=== PATIENT | female | born 1960 | race Caucasian/White ===

== ENCOUNTER → 2022-04-26 14:10 | Outpatient (CLI) | payer SELFPAY ==
--- NOTE | ~2022-04-26 | MR_ITS ---
EXAMINATION: MR cervical spine wo con DATE: 04/26/2022 15:11 INDICATION: Right arm and neck pain x1.5 years. No injury. TECHNIQUE: Magnetic resonance imaging (MRI) of the cervical spine was performed without intravenous c ontrast. Sequences included sagittal T2-weighted FSE, sagittal T2-weighted FS FSE, sagittal T1-weight ed FSE, axial MERGE, and axial T2-weighted FSE. COMPARISON: None FINDINGS: Craniocervical association and atlantoaxial joint are intact, with mild degenerative change . Reversed lordosis, centered at C4-5. Vertebral body heights are maintained. Multilevel disc dehydra tion. The cord signal is normal. Congenital narrowing of the canal. Normal cervicomedullary junction. The following disc levels are specifically discussed: C2-C3: Mild diffuse bulge. There is mild uncovertebral joint osteoarthritis. There is no facet joint osteoarthritis. There is no neural foraminal stenosis. There is no central canal stenosis. C3-C4: Mild diffuse bulge. There is mild bilateral uncovertebral joint osteoarthritis. There is mild bilateral facet joint osteoarthritis. There is no right and mild left neural foraminal stenosis. Ther e is no central canal stenosis. C4-C5: Mild diffuse bulge. There is moderate bilateral uncovertebral joint osteoarthritis. There is m ild bilateral facet joint osteoarthritis. There is moderate right and mild left neural foraminal sten osis. There is mild central canal stenosis. C5-C6: Moderate diffuse bulge. There is moderate bilateral uncovertebral joint osteoarthritis. There is moderate bilateral facet joint osteoarthritis. There is severe right and moderate left neural fora rizwana stenosis. There is moderate central canal stenosis. C6-C7: Mild diffuse bulge. There is mild right and moderate left uncovertebral joint osteoarthritis. There is mild bilateral facet joint osteoarthritis. There is mild right and moderate left neural fora rizwana stenosis. There is no central canal stenosis. C7-T1: Mild diffuse bulge There is mild bilateral uncovertebral joint osteoarthritis. There is mild b ilateral facet joint osteoarthritis. There is no right and mild left neural foraminal stenosis. There is no central canal stenosis. IMPRESSION: 1. Moderate central canal stenosis at C5-6, caused by combination of degenerative disc, uncovertebral joint, and facet change, overlying a congenital narrowed appearing canal. 2. Severe right and moderate left neural foraminal narrowing at the C5-6 level. 3. Lesser degrees of degenerative disc change, uncovertebral joint osteoarthritis, central canal and neural foraminal narrowing are described in detail above. Reviewed, dictated and finalized at location K. IMPRESSION: 1. Moderate central canal stenosis at C5-6, caused by combination of degenerati ve disc, uncovertebral joint, and facet change, overlying a congenital narrowed appearing canal. 2. Severe right and moderate left neural foraminal narrowing at the C5-6 level. 3. Lesser degrees of degenerative disc change, uncovertebral joint osteoarthrit is, central canal and neural foraminal narrowing are described in detail above.
== END ==
PROVIDERS: PCP Internal Medicine; Visit Provider Neurological Surgery
DX: M50.322 Other cervical disc degeneration at C5-C6 level (principal); M48.02 Spinal stenosis, cervical region; M85.88 Other specified disorders of bone density and structure, other site
CPT/HCPCS: 99199; 72141

== ENCOUNTER 2022-06-02 12:32 | Outpatient (CLI) | payer OTHER, SELFPAY ==
--- NOTE | ~2022-06-02 | CT_ITS ---
EXAMINATION: CT cervical spine wo con DATE: 06/02/2022 13:01 INDICATION: Cervical spondylosis TECHNIQUE: Computed tomography (CT) of the cervical spine was performed without intravenous contrast. Automated exposure control and iterative reconstruction technique were employed. The dose-length pro duct was 105.92 mGy-cm. COMPARISON: Cervical spine MR dated 04/26/2022 FINDINGS: Moderate osteoarthritis at the atlantoaxial articulation. Straightening of the normal cervical lordos is. 1-2 mm retrolisthesis C5 on C6. Vertebral body heights are normal. No fracture. Mild disc height loss at C5-C6 with disc bulge resulting in mild central canal stenosis. There is also associated mild left and moderate right uncovertebral osteoarthritis resulting in mild bilateral neural foraminal st enosis at this level. Severe facet osteoarthritis on the right at T2-T3 and bilaterally at C7-T1 and T1-T2 and on the left at T2-T3. Minimal to mild facet osteoarthritis in the more cephalad cervical sp ine. Small amount of atherosclerotic calcific a cyst at the bilateral carotid bulbs. Mild emphysema t he apices of the lungs. IMPRESSION: 1. Mild cervical spondylosis. No acute osseous abnormalities. Reviewed, dictated and finalized at location A.
--- NOTE | 2022-06-02 13:23 | ECG_ITS ---
Measurements Intervals [place] Rate: 84 P: 79 MT: 129 QRS: 65 QRSD: 93 T: 64 QT: 339 QTc: 401 Interpretive Statements SINUS RHYTHM POSSIBLE LEFT ATRIAL ENLARGEMENT BORDERLINE ST ABNORMALITY- ANTEROLAT/INF LEADS BORDERLINE ECG NO PREVIOUS ECG AVAILABLE FOR COMPARISON Electronically Signed On 06-02-2022 14:39:04 CDT by Fransisco Elise D.O.
[2022-06-02 13:37] LABS: Basophils Percent Auto 0.6 % (0.2-1.2); Eosinophils Absolute Auto 0.1 K/mm3 (0-0.3); Eosinophils Percent Auto 2.1 % (0-4.4); Hematocrit 42.1 % (37.0-47.0); Immature Granulocyte Absolute 0.02 K/mm3 (0.00-0.031); Immature Granulocyte Percent A 0.3 % (0-0.5); Lymphocytes Absolute Auto 1.94 K/mm3 (0.9-3.2); Lymphocytes Percent Auto 29.3 % (18.3-44.2); Mean Corpuscular HGB Conc 33.3 g/dl (32-36); Mean Corpuscular Volume 99.3 fl (80-100); Mean Platelet Volume 9.1 fl (7.4-10.4); Monocytes Absolute Auto 0.5 K/mm3 (0.1-0.6); Monocytes Percent Auto 7.4 % (2.6-8.5); Neutrophils Percent Auto 60.3 % (45.5-73.1); Platelet Count Result 306 k/mm3 (150-375); Red Blood Count 4.24 M/mm3 (4.2-5.4); Red Cell Distribution Width 12.7 % (11.5-14.5); White Blood Count 6.6 K/mm3 (4.5-10.0)
[2022-06-02 13:41] LABS: Appearance Urine Clear (Clear); Bilirubin Urine Negative (Negative); Blood Urine Trace-lysed (Negative); Color Urine Yellow (Yellow); Glucose Urine UA Negative (Negative); Ketones Urine Negative (Negative); Leukocyte Esterase Ur Negative LEU/UL (Negative); Nitrate Urine Negative (Negative); Protein Urine Negative (Negative); Urobilinogen Urine 0.2 mg/dL (<2.0); pH Urine 6.5 (5.0-9.0)
[2022-06-02 13:43] LABS: Add Urine Microscopic? YES
[2022-06-02 13:48] LABS: Anion Gap 12 mmol/L (8-16); Blood Urea Nitrogen 9 mg/dL (7-17); Calcium 9.4 mg/dL (8.4-10.2); Carbon Dioxide 28 mmol/L (22-30); Chloride 98 mmol/L (98-107); Estimated Glomerular Filt Rate > 60; Glucose 144 mg/dL (65-110); INR 0.9; Potassium 3.7 mmol/L (3.4-5.0); Sodium 138 mmol/L (137-145)
[2022-06-02 13:49] LABS: Mucus Urine Rare /lpf; Squamous Epithelial Cell Urine Rare /hpf (Few); WBC Urine 0-3 /hpf
== END 2022-06-02 12:33 | disposition home or self-care (01) ==
PROVIDERS: PCP Internal Medicine; Visit Provider Neurological Surgery
DX: Z01.818 Encounter for other preprocedural examination (principal); M47.812 Spondylosis without myelopathy or radiculopathy, cervical region
CPT/HCPCS: 36415; 72125; 80048; 81001; 85025; 85610; 85730; 86850; 86900; 86901; 93005

== ENCOUNTER 2022-06-08 01:06 | Day surgery (SDC) | payer OTHER, SELFPAY ==
[2022-06-01 15:40] VITALS: BMI 19.5
--- NOTE | 2022-06-01 16:08 | PC.NURSE ---
Report to the Outpatient Waiting Room, entrance under the green pavilion located off [facility], at time 6:00 on date 06/08/22. OR Time: 7:30. - You and your visitor will be asked to self-screen and do not enter if you have any COVID symptoms. - Only one visitor and NO children visitors are allowed at this time. WILL BE ALLOWED 2 VISITORS AT A TIME ONCE IN ROOM AFTER SURGERY - The patient visitor is requested to leave or wait in car when not with patient due to restrictions. - A mask is required within the hospital. Patients may have clear liquids (water, carbonated beverages, clear teas, apple juice) until 3 hours prior to surgery (4:30) with a maximum of 20 ounces. - No food from midnight until time of surgery Take the following medications with a SIP of water the morning of surgery: CYCLOBENZAPRINE (IF NEEDED) Medications to discontinue per physician: N/A Date to take last dose: N/A Please no make-up, nail romansh, hairspray, perfume, deodorant, or body powder the day of surgery. No jewelry (including any body piercings) or valuables the day of surgery, leave them at home. Please take a shower or bath the night before, or the morning of, surgery with an antibacterial soap. Wear comfortable, loose fitting clothing. - Jewelry must be removed prior to entering the operating room. Rings and piercings that are not removed may be cut off. - The hospital will not accept responsibility for valuables. - Please leave all valuables, including medications, at home the day of surgery. If you are going home after surgery, a licensed skip load driver must drive you home. - NO public transportation without another adult. - We recommend that an adult stay with you for 24 hours following discharge. - We also recommend that you do not drive, make important decision, drink alcoholic beverages, or take any drugs that were not prescribed by your health care provider for at least 24 hours after your discharge time. Follow any additional instructions given to you from your surgeon. If you or anyone in your household have experienced Covid symptoms in the past week, please notify your surgeon or the nurse liaison at the phone number below for possible testing. Telephone instructions given to PT - EMERSON ORTIZ and asked if any additional questions and then verbalized understanding. Patient advised to call surgeon office or pre surgery nurse liaison [phone] if any additional questions.
[2022-06-08] VITALS (15 sets, daily range): BP systolic 115–136; BP diastolic 62–90; PULSE 84–111; RESP 12–22; TEMP 36.5–37.1; O2SAT 93–100
--- NOTE | ~2022-06-08 | XR_ITS ---
EXAMINATION: XR fluoroscopy no charge DATE: 06/08/2022 10:26 INDICATION: C5-C6 total disc replacement TECHNIQUE: 4 fluoroscopic images of the spine were obtained during procedure performed by Dr. Taylor. Radiologist was not present for the imaging or procedure. The amount of fluoroscopy time used during this procedure was 1.1 minutes. COMPARISON: CT dated 06/02/2022 FINDINGS: Initial images demonstrate an endotracheal tube extending into the proximal trachea and beyond the in ferior margin of the [id number]. There is also a likely temperature probe extending to the nasopha rynx into the hypopharynx. There is mild disc height loss at C5-C6 with a few millimeter of retrolist hesis of C5 on C6. Subsequent images demonstrate C5-C6 discectomy and placement of a prosthetic disc in expected position. IMPRESSION: 1. Fluoroscopy utilized during C5-C6 total disc replacement. See procedure note for further detail. Reviewed, dictated and finalized at location A.
[2022-06-08] MEDS: LACTATED RINGERS 1,000 ML 30 ML IV CONT ×2 (06:40→10:40)
--- NOTE | 2022-06-08 06:55 | P.PNAN_ITS ---
Anes - Initial Pre Proc Eval Procedure: Operation Date: 06/08/22 07:30 Proposed Procedures p Total Disc Replacement C5-6 - Dena Taylor MD Date/Time: 06/08/22 06:55 Surgeon: Dena Taylor MD Pre Op Diagnosis: cervical spondylosis Patient Data Age: 61 Gender: F Height: 1.63 m Weight: 51.71 kg Allergies Allergy/AdvReac Type Severity Reaction Status Date / Time amoxicillin [From Augmentin] Allergy Mild Nausea Verified 06/01/22 15:39 clavulanic acid Allergy Mild Nausea Verified 06/01/22 15:39 [From Augmentin] Home Medications Medication Instructions Recorded Confirmed Type cyclobenzaprine 10 mg tablet 10 mg PO TID #90 tabs 04/14/22 06/01/22 Rx Patient hx anesthesia problems: none Family hx anesthesia problems: none Results Review: All pre-operative results and documents have been reviewed as part of the pre- operative evaluation. [facility] Past Medical History Medical History Arthritis Chronic pain syndrome Surgical History Surgical History deliv NOS-unsp H/O: hysterectomy History of lumbar fusion Hx of shoulder surgery Family History Family History Other Hypertension Social History Social History Smoking packs per day: 1 Smoking cigarettes per day: 20.0 Years smoked: 25 Smoking pack-years: 25.00 Smoking status: Current every day smoker Tobacco type: cigarettes Additional smoking assessment comments: IN PROCESS OF QUITTING - DOWN TO 4 CIGARETTES/DAY Alcohol intake: current Drinks per week: 4 Alcohol use details: BEER Substance use: never Substance use type: does not use Living arrangements: with family Spiritual care concerns: No Anes - Eval Final PreProcedure Day of Procedure 06/08/22 06:55 Patient weight: normal Heart: regular rate and rhythm Lungs: decreased breath sounds Airway: Mallampati scale class II Neurological: alert and oriented Last oral intake: >/= 8 hours ASA classification: III Emergent: no Anesthetic plan: proceed Anesthesia type and monitoring: general ETT and standard monitoring Results Review: All pre-operative results and documents have been reviewed as part of the pre- operative evaluation. Informed Consent: The patient's anesthetic plan and its attendant risks and benefits were discussed with the patient/family/POA. Questions were solicited and answers provided to the satisfaction of the patient/family/POA.
--- NOTE | 2022-06-08 07:40 | WPDHPUPDATE1 ---
History and Physical Update Update Date/Time: 06/08/22 07:40 History and Physical has been reviewed, including an updated exam of the patient. There are NO changes in the patient's condition. Risks, benefits, and alternatives have been discussed and questions answered. Patient agrees to proceed with procedure.
[2022-06-08] MEDS: ceFAZolin 2 GM/D5W 50 ML 2 GM/50 ML BAG IVPB (07:52)
--- NOTE | 2022-06-08 10:24 | W.PM.PROC2 ---
Procedure Note - Detailed Date of Procedure 06/08/22 Pre-op Diagnosis cervical spondylosis Post-op Diagnosis Same Procedure Performed Total Disc replacement C5-6 Surgeon Dena Taylor MD Anesthesia General Indications Lia Nassar? is a very pleasant 61-year-old female who originally presented at the request of Dr. Rpahael with signs and symptoms of neck and right upper extremity sensory symptoms that fit best with a right C6 radiculitis in the setting of cervical spondylosis with neuroforaminal stenosis most pronounced at C5-6 on the right on imaging.? At onset, the patient had pain as well as sensory change.? She initially responded well to a series of epidural steroid injections as well as, subsequently, a formal course of physical therapy.? Over the past two months, however, the patient has experienced severe and significant recurrence of pain.? She has spontaneous fasciculations on examination.? While she does not have objective weakness on examination, she has a subjective weakness that is bothersome. ? Lia is actively pursuing her home exercise program.? She has considered a repeat epidural steroid injection but is concerned that these did not give lasting benefit in the past.? ? She has not seen benefit with oral steroids or muscle relaxants.? We have disscussed today that as medications, physical therapy, and epidural steroid injections have not given lasting relief and as her symptoms are severe, it would be reasonable to consider surgical intervention.? ? The current MRI shows moderate central stenosis at C5-6.? We have discussed both anterior and posterior approaches to the cervical spine.? In the setting of central stenosis I have explained that I would advocate for an anterior approach.? We have discussed options including cervical disc replacement versus ACDF.? I do not see significant facet arthropathy on the patient's MRI.? CT of the cervical spine also is not suggetive of facet arthropathy.? ? We have discussed the indications as well as the risks of surgery including but not limited to bleeding, infection, CSF leak, numbness weakness paralysis stroke coma even .? We discussed the risk of damage to adjacent structures in the neck including blood vessels, recurrent laryngeal nerve, esophagus and trachea.? We have discussed the risks of hardware failure, pseudoarthrosis, and the possibility of the need to convert to ACDF even if we planned for a disc replacement surgery.? The patient understands the possible consequences of adjacent segment disease even in the setting of a disc replacement which can, at times, go on to fuse.? The patient expresses understanding in terms of all these risks and asks us to proceed with surgery.?? Description of Procedure The patient was brought into the operating room where general anesthesia was induced without incident. appropriate monitoring and access was obtained. SSEP and MEP were obtained and monitored throughout the case. The patient was positioned in a supine position on the OR table with a roll underneath her shoulder blades. Her neck was extended. All extremities were padded. The C5-6 level was identified with fluooscopy and the patient was prepped and draped in a sterile fashion. A linear incision was made in a skin crease in the left paratracheal region overlying the C5-6 disc space. Hemostasis was achieved. The platysma was dissected, cauterized and inised sharply. The muscle was undermined and a retractor was placed. The sternocleidmastoid and strap muscles were idenitified and dissected and, in an intramuscular plane dissectors were advanced to the prevertebral space. A bent needle was placed in the C5-6 disc space and the level was confirmed. The self retaining retrators were placed. The prevertebral osteophytes were drilled and the longus coli muscle was dissected with cautery laterally. Kaspar pin distractors were placed in alignement with the disc space, secured and distracted.
--- NOTE | 2022-06-08 12:19 | ADMGEN ---
This patient, Lia Nassar, was admitted to 2 Medical Room 259-01. Patient/family oriented to hospital policies and general routines including ID bracelet, bed and alarms, visiting hours, pain management, procedures, bathroom and other care routines, personal items, smoking policy, room service/diet, and visiting hours. Information on how to activate the Rapid Response Team has been discussed. Patient/Family are encouraged to report perceived risks to care and to ask questions if they do not understand what they are told or what they should do.
[2022-06-08] MEDS: CYCLOBENZAPRINE HCL 10 MG TABLET PO ×2 (12:29→17:31)
[2022-06-08] MEDS: KCL 20 MEQ/D5/0.45% SOD CHL 1,000 ML 100 ML IV CONT (12:36)
[2022-06-08] MEDS: HYDROcodone/acetaminophen (*CRX) 10-325 MG TABLET 1 TAB PO (20:13)
[2022-06-08] MEDS: DOCUSATE SODIUM 100 MG CAPSULE PO (20:14)
[2022-06-09 03:45] VITALS: BP 129/79; PULSE 91; RESP 18; TEMP 36.4; O2SAT 98
[2022-06-09 08:55] VITALS: RESP 18; O2SAT 98
[2022-06-09] MEDS: DOCUSATE SODIUM 100 MG CAPSULE PO (08:55)
[2022-06-09] MEDS: CYCLOBENZAPRINE HCL 10 MG TABLET PO (08:55)
== END 2022-06-09 10:45 | disposition home or self-care (01) ==
LOC: ANHSURGERY 06:03 → ANH2MED 14:04
PROVIDERS: PCP Internal Medicine; Visit Provider Neurological Surgery
PROC: 0RB30ZZ Excision of Cervical Vertebral Disc, Open Approach (ICD-10-PCS; CPT 22551; principal; 2022-06-08 07:30)
DX: M47.812 Spondylosis without myelopathy or radiculopathy, cervical region (principal); M48.02 Spinal stenosis, cervical region; G89.4 Chronic pain syndrome; Z98.1 Arthrodesis status; F17.210 Nicotine dependence, cigarettes, uncomplicated
CPT/HCPCS: 22856; 36415; 72125; 80048; 81001; 85025; 85610; 85730; 86850; 86900; 86901; 93005; 97161; 99199; A9270; J0131; J0690; J1100; J1170; J2250; J2405; J2704; J3010; J3370; J3480; J7030; J7120

== ENCOUNTER 2022-10-18 11:33 | Outpatient (CLI) | payer OTHER, SELFPAY ==
--- NOTE | ~2022-10-18 | XR_ITS ---
Cervical Spine: AP and lateral views Clinical History: Spondylosis Findings: The normal lordotic curve is maintained. No fracture or subluxation identified. Interverteb ral disc prosthesis present at the C5-C6 disc space. Remaining disc spaces are preserved. Pre-vertebr al soft tissues are unremarkable. Impression: Intervertebral disc prosthesis at the C5-C6 disc space. Reviewed, dictated and finalized at location . CARGO MOVER Impression: Intervertebral disc prosthesis at the C5-C6 disc space.
== END 2022-10-18 11:34 | disposition home or self-care (01) ==
LOC: ANHIMG 11:37
PROVIDERS: PCP Internal Medicine; Visit Provider Neurological Surgery
DX: M47.812 Spondylosis without myelopathy or radiculopathy, cervical region (principal)
CPT/HCPCS: 72040

== ENCOUNTER 2023-06-07 12:31 | Outpatient (CLI) | payer OTHER, SELFPAY ==
--- NOTE | ~2023-06-07 | XR_ITS ---
EXAMINATION:XR_[id number]_CR DATE: 06/07/2023 13:01 INDICATION: Neck pain TECHNIQUE: AP, lateral, lateral swimmers and odontoid views of the cervical spine are provided. COMPARISON: 10/18/2022 FINDINGS: Alignment is normal. The odontoid process is intact. No fracture is identified. And interve rtebral disc devices present at C5-6. The intervertebral disc spaces are otherwise normal. Prevertebr al soft tissues are normal. IMPRESSION: 1. Surgical changes at C5-6 without acute findings or significant interval change. Reviewed, dictated and finalized at location L. IMPRESSION: 1. Surgical changes at C5-6 without acute findings or significant interval knight
== END 2023-06-07 12:32 | disposition home or self-care (01) ==
PROVIDERS: PCP Internal Medicine; Visit Provider Nurse Practitioner Adult Health
DX: M47.812 Spondylosis without myelopathy or radiculopathy, cervical region (principal)
CPT/HCPCS: 72040

== ENCOUNTER 2024-05-11 08:15 | Emergency (ER) | payer OTHER, SELFPAY ==
[2024-05-11 08:20] VITALS: BP 151/71; PULSE 72; RESP 20; TEMP 37; O2SAT 100
--- NOTE | 2024-05-11 08:38 | ED.GENADULT ---
HPI - General Adult General Chief complaint: Dizziness Stated complaint: dizziness Time Seen by Provider: 05/11/24 08:38 Source: patient and RN notes reviewed Mode of arrival: ambulatory Limitations: no limitations History of Present Illness HPI narrative: 63 y/o female with hx HTN presented for c/o dizziness x5 days. Pt has been taking dramamine and meclizine with improvement but not resolution. Dizziness is described as feeling off balance, not room spinning. Worse with movements especially bending over. Pt was seen by pcp 2 days prior to onset of dizziness, and was told her Sodium level was low. Pt works outside and reports drinking a lot of water. Denies chest pain, palpitations, headache, vision changes, n/v/d/f/c. Related Data Home Medications Medication Instructions Recorded Confirmed amlodipine 2.5 mg tablet 2.5 mg PO DAILY 06/08/22 05/11/24 Allergies Allergy/AdvReac Type Severity Reaction Status Date / Time amoxicillin [From Augmentin] Allergy Mild Nausea Verified 05/11/24 08:28 clavulanic acid Allergy Mild Nausea Verified 05/11/24 08:28 [From Augmentin] Review of Systems Review of Systems: CONSTITUTIONAL: Denies body aches, fever, chills, or sweats. EYES: Denies visual changes, redness, or discharge. ENT: Denies rhinorrhea, congestion, sore throat, or otalgia. CARDIOVASCULAR: Denies chest pain, palpitations, or edema. RESPIRATORY: Denies cough or dyspnea. GASTROINTESTINAL: Denies abdominal pain, nausea, vomiting, or diarrhea. GENITOURINARY: Denies Oliguria, dysuria or hematuria. SKIN: Denies rash MUSCULOSKELETAL: Denies back pain, joint pain, or myalgia. NEUROLOGIC: Endorses dizziness denies denies All systems reviewed & are unremarkable except as noted in HPI and below PMFSH Past Medical History Medical History Arthritis Chronic pain syndrome Surgical History Surgical History deliv NOS-unsp H/O: hysterectomy History of lumbar fusion Hx of shoulder surgery Family History Family History Other Hypertension Social History Social History Smoking packs per day: 1 Smoking cigarettes per day: 20.0 Years smoked: 46 Smoking pack-years: 46.00 Smoking status: Current every day smoker Tobacco type: cigarettes and e-cigarettes/vaping Additional smoking assessment comments: IN PROCESS OF QUITTING - DOWN TO 4 CIGARETTES/DAY Alcohol intake: current Drinks per week: 35 Alcohol use details: BEER Substance use: never Substance use type: does not use Lack of Transportation: No Lack of Food: Never True Current Housing: I Have Housing Concerned About Future Housing: No Difficulty Paying Gas/Electric Bills: No Difficulty Paying for Meds: No Currently Unemployed: No Education: Trade/Vocational Certificate Difficulty w/ Childcare or Family Care: No Living arrangements: with family Spiritual care concerns: No Comments At time of signature, I have reviewed and agree with nursing past medical, surgical, social and family history unless otherwise noted. Please see nursing chart for further information. There is no relevant family history pertinent to the presenting complaint Exam Narrative: GENERAL: Well-appearing HEAD: Normocephalic, atraumatic. EYES: PERRLA, EOMI. ENT: Mucous membranes pink and moist. No rhinorrhea. TMs normal bilaterally. NECK: Normal AROM. no dizziness reported with range of motion activity. Supple. No lymphadenopathy. CHEST: No respiratory distress. Clear to auscultation. HEART: Regular rate and rhythm. No murmur appreciated. Normal peripheral pulses. ABDOMEN: Soft, nontender, nondistended, normal active bowel sounds. MUSCULOSKELETAL: No bony tenderness. EXTREMITIES: Normal range of motion.
[2024-05-11 08:40] VITALS: BP 154/68; PULSE 78
[2024-05-11 08:42] VITALS: BP 151/78; PULSE 92
[2024-05-11 08:44] VITALS: BP 130/68; PULSE 84
[2024-05-11 08:45] VITALS: BP 151/71; PULSE 72; RESP 20; TEMP 37; O2SAT 100
== END 2024-05-11 09:00 | disposition home or self-care (01) ==
PROVIDERS: Emergency Provider Nurse Practitioner Family; PCP Internal Medicine
DX: R42 Dizziness and giddiness (principal); F17.210 Nicotine dependence, cigarettes, uncomplicated; F17.290 Nicotine dependence, other tobacco product, uncomplicated; M19.90 Unspecified osteoarthritis, unspecified site
CPT/HCPCS: 99213; G0463